=== PATIENT | male | born 1995 | race Caucasian/White ===

== ENCOUNTER 2019-11-07 11:20 | Emergency (ER) | payer BC ==
[2019-11-07 11:23] VITALS: RESP 18; TEMP 98.3
[2019-11-07] MEDS ORDERED: MORPHINE SULFATE 4 MG/ML SYRINGE IV STA (12:41)
[2019-11-07] MEDS ORDERED: KETOROLAC 30 MG/ML 1 ML VIAL IVP STA (12:41)
[2019-11-07] MEDS ORDERED: SODIUM CHLORIDE 0.9% 1,000 ML IV STA ×2 (12:41)
[2019-11-07] MEDS ORDERED: ONDANSETRON 4 MG/2 ML VIAL IVP STA (12:41)
[2019-11-07] MEDS ORDERED: PANTOPRAZOLE 40 MG/10 ML VIAL IVP STA (12:41)
--- NOTE | 2019-11-07 12:50 | ED ---
Abdominal Pain HPI - General Chief Complaint: Abdominal Pain Stated Complaint: abd & back pain Time Seen by Provider: 11/07/19 12:30 Source: patient, RN notes reviewed, old records reviewed Mode of arrival: ambulatory Limitations: no limitations - History of Present Illness Initial Comments: 33-year-old male present today with complaints of right upper quadrant pain with radiation towards the back. Symptoms starting 3 hours after eating a corn dog and drinking alcohol heavily last night. Patient denies any recent fevers or chills. He's been having some chronic right upper quadrant pain for the past month. He became more severe this morning and woke him up from sleep. - Related Data Previous Rx's Medication Instructions Recorded Famotidine [Pepcid] 20 mg PO BID #20 tablet 11/07/19 Ondansetron Odt [Zofran Odt] 4 mg PO Q8HR PRN #12 tab 11/07/19 Allergies Allergy/AdvReac Type Severity Reaction Status Date / Time Penicillins Allergy Unknown Verified 11/07/19 11:23 Review of Systems ROS Statement: Those systems with pertinent positive or pertinent negative responses have been documented in the HPI. ROS Other: All systems not noted in ROS Statement are negative. Past Medical History Past Medical History: No Reported History History of Any Multi-Drug Resistant Organisms: None Reported Past Surgical History: No Surgical Hx Reported Past Psychological History: No Psychological Hx Reported Smoking Status: Never smoker Past Alcohol Use History: Occasional Past Drug Use History: None Reported General Exam Limitations: no limitations General appearance: alert, in no apparent distress Head exam: Present: atraumatic, normocephalic, normal inspection Eye exam: Present: normal appearance, PERRL, EOMI. Absent: scleral icterus, conjunctival injection, periorbital swelling ENT exam: Present: normal exam, mucous membranes moist Neck exam: Present: normal inspection. Absent: tenderness, meningismus, lymphadenopathy Respiratory exam: Present: normal lung sounds bilaterally. Absent: respiratory distress, wheezes, rales, rhonchi, stridor Cardiovascular Exam: Present: regular rate, normal rhythm, normal heart sounds. Absent: systolic murmur, diastolic murmur, rubs, gallop, clicks GI/Abdominal exam: Present: soft, normal bowel sounds. Absent: distended, tenderness, guarding, rebound, rigid Extremities exam: Present: normal inspection, full ROM, normal capillary refill. Absent: tenderness, pedal edema, joint swelling, calf tenderness Back exam: Present: normal inspection Neurological exam: Present: alert, oriented X3, CN II-XII intact Psychiatric exam: Present: normal affect, normal mood Skin exam: Present: warm, dry, intact, normal color. Absent: rash Course Vital Signs 11/07/19 11/07/19 11/07/19 11:21 11:23 12:23 Temperature 98.3 F Pulse Rate 107 H Respiratory 18 18 18 Rate Blood Pressure 141/85 O2 Sat by Pulse 99 Oximetry 11/07/19 11/07/19 11/07/19 13:23 14:23 15:23 Temperature Pulse Rate 75 72 76 Respiratory 18 18 18 Rate Blood Pressure 136/82 O2 Sat by Pulse 100 100 100 Oximetry 11/07/19 15:44 Temperature Pulse Rate 76 Respiratory 18 Rate Blood Pressure 136/82 O2 Sat by Pulse 100 Oximetry Medical Decision Making - Medical Decision Making 23-year-old now presents emergency department today for complaints for right upper quadrant pain range towards his back starting at 6 AM today after having drinking last night. Labs. Transaminitis. Likely related to heavy alcohol intake yesterday. He had a right upper quadrant ultrasound shows no signs of cholecystitis or gallbladder stones. I advised Patient may have biliary colic advise close follow-up with surgeon and primary care doctor. Patient is reevaluated after medications feeling much better at this time. All questions were answered and return parameters were discussed. - Lab Data Result diagrams: 11/07/19 13:28 11/07/19 13:28 Lab Results 11/07/19 11/07/19 11/07/19 Range/Units 13:28 13:28 13:28 WBC 9.5 (3.8-10.6) k/uL RBC 5.44 (4.30-5.90) m/uL Hgb 17.5 (13.0-17.5) gm/dL Hct 50.5 (39.0-53.0) % MCV 92.7 (80.0-100.0) fL MCH 32.1 (25.0-35.0) pg MCHC 34.6 (31.0-37.0) g/dL RDW 12.4 (11.5-15.5) % Plt Count 232 (150-450) k/uL Neutrophils % 76 % Lymphocytes % 15 % Monocytes % 7 % Eosinophils % 1 % Basophils % 0 % Neutrophils # 7.2 (1.3-7.7) k/uL Lymphocytes # 1.4 (1.0-4.8) k/uL Monocytes # 0.6 (0-1.0) k/uL Eosinophils # 0.1 (0-0.7) k/uL Basophils # 0.0 (0-0.2) k/uL PT 9.8 (9.0-12.0) sec INR 0.9 (<1.2) APTT 23.7 (22.0-30.0) sec Sodium (137-145) mmol/L Potassium (3.5-5.1) mmol/L Chloride (98-107) mmol/L Carbon Dioxide (22-30) mmol/L Anion Gap mmol/L BUN (9-20) mg/dL Creatinine (0.66-1.25) mg/dL Est GFR (CKD-EPI)AfAm (>60 ml/min/1.73 sqM) Est GFR (CKD-EPI)NonAf (>60 ml/min/1.73 sqM) Glucose (74-99) mg/dL Calcium (8.4-10.2) mg/dL Total Bilirubin (0.2-1.3) mg/dL AST (17-59) U/L ALT (4-49) U/L Alkaline Phosphatase (38-126) U/L Total Protein (6.3-8.2) g/dL Albumin (3.5-5.0) g/dL Amylase (30-110) U/L Lipase (23-300) U/L Urine Color Yellow Urine Appearance Cloudy (Clear) Urine pH 7.5 (5.0-8.0) Ur Specific [place] 1.018 (1.001-1.035) Urine Protein Trace H (Negative) Urine Glucose (UA) Negative (Negative) Urine Ketones Negative (Negative) Urine Blood Negative (Negative) Urine Nitrite Negative (Negative) Urine Bilirubin Negative (Negative) Urine Urobilinogen <2.0 (<2.0) mg/dL Ur Leukocyte Esterase Negative (Negative) Urine RBC 1 (0-5) /hpf Urine WBC 3 (0-5) /hpf Amorphous Sediment Rare H (None) /hpf Urine Bacteria Occasional H (None) /hpf Urine Mucus Rare H (None) /hpf Urine Sperm Rare (None) /hpf 11/07/19 Range/Units 13:28 WBC (3.8-10.6) k/uL RBC (4.30-5.90) m/uL Hgb (13.0-17.5) gm/dL Hct (39.0-53.0) % MCV (80.0-100.0) fL MCH (25.0-35.0) pg MCHC (31.0-37.0) g/dL RDW (11.5-15.5) % Plt Count (150-450) k/uL Neutrophils % % Lymphocytes % % Monocytes % % Eosinophils % % Basophils % % Neutrophils # (1.3-7.7) k/uL Lymphocytes # (1.0-4.8) k/uL Monocytes # (0-1.0) k/uL Eosinophils # (0-0.7) k/uL Basophils # (0-0.2) k/uL PT (9.0-12.0) sec INR (<1.2) APTT (22.0-30.0) sec Sodium 140 (137-145) mmol/L Potassium 4.2 (3.5-5.1) mmol/L Chloride 105 (98-107) mmol/L Carbon Dioxide 25 (22-30) mmol/L Anion Gap 10 mmol/L BUN 11 (9-20) mg/dL Creatinine 1.14 (0.66-1.25) mg/dL Est GFR (CKD-EPI)AfAm >90 (>60 ml/min/1.73 sqM) Est GFR (CKD-EPI)NonAf 89 (>60 ml/min/1.73 sqM) Glucose 87 (74-99) mg/dL Calcium 9.5 (8.4-10.2) mg/dL Total Bilirubin 0.7 (0.2-1.3) mg/dL AST 270 H (17-59) U/L ALT 229 H (4-49) U/L Alkaline Phosphatase 96 (38-126) U/L Total Protein 7.6 (6.3-8.2) g/dL Albumin 5.3 H (3.5-5.0) g/dL Amylase 61 (30-110) U/L Lipase 77 (23-300) U/L Urine Color Urine Appearance (Clear) Urine pH (5.0-8.0) Ur Specific [place] (1.001-1.035) Urine Protein (Negative) Urine Glucose (UA) (Negative) Urine Ketones (Negative) Urine Blood (Negative) Urine Nitrite (Negative) Urine Bilirubin (Negative) Urine Urobilinogen (<2.0) mg/dL Ur Leukocyte Esterase (Negative) Urine RBC (0-5) /hpf Urine WBC (0-5) /hpf Amorphous Sediment (None) /hpf Urine Bacteria (None) /hpf Urine Mucus (None) /hpf Urine Sperm (None) /hpf - Radiology Data Radiology results: report reviewed Normal ultrasound of the gallbladder. No stones or signs of cholecystitis. Disposition Clinical Impression: Biliary colic, Transaminitis Disposition: HOME SELF-CARE Condition: Stable Instructions (If sedation given, give patient instructions): Biliary Colic (ED) Additional Instructions: Please use medication as discussed. Please follow up with family doctor and surgeon over the next two days. Please return to the emergency room if your symptoms increase or worsen or for any other concerns. Prescriptions: Famotidine [Pepcid] 20 mg PO BID #20 tablet Ondansetron Odt [Zofran Odt] 4 mg PO Q8HR PRN #12 tab PRN Reason: Is patient prescribed a controlled substance at d/c from ED?: No Referrals: Ciarra Hunter DO [Primary Care Provider] - 1-2 days Jazmín Salmeron MD [STAFF PHYSICIAN] - 1-2 days Time of Disposition: 14:51
[2019-11-07 13:37] LABS: Basophils % (A) 0 %; Eosinophils # (A) 0.1 k/uL (0-0.7); Eosinophils % (A) 1 %; HCT 50.5 % (39.0-53.0); HGB 17.5 gm/dL (13.0-17.5); Lymphocytes # (A) 1.4 k/uL (1.0-4.8); Lymphocytes % (A) 15 %; MCH 32.1 pg (25.0-35.0); MCHC 34.6 g/dL (31.0-37.0); MCV 92.7 fL (80.0-100.0); Mean Platelet Volume 7.5; Monocytes # (A) 0.6 k/uL (0-1.0); Monocytes % (A) 7 %; Neutrophils # (A) 7.2 k/uL (1.3-7.7); Neutrophils % (A) 76 %; Platelet Count 232 k/uL (150-450); RBC 5.44 m/uL (4.30-5.90); RDW 12.4 % (11.5-15.5); WBC 9.5 k/uL (3.8-10.6)
[2019-11-07 13:46] LABS: ALT 229 U/L (4-49); AST 270 U/L (17-59); African American GFR (CKD) >90 (>60 ml/min/1.73 sqM); Albumin 5.3 g/dL (3.5-5.0); Alkaline Phosphatase 96 U/L (38-126); Amylase 61 U/L (30-110); Anion Gap 10 mmol/L; Blood Urea Nitrogen 11 mg/dL (9-20); Calcium 9.5 mg/dL (8.4-10.2); Carbon Dioxide 25 mmol/L (22-30); Chloride 105 mmol/L (98-107); Glucose 87 mg/dL (74-99); INR 0.9 (<1.2); Non-African American GFR(CKD) 89 (>60 ml/min/1.73 sqM); Partial Thromboplastin Time 23.7 sec (22.0-30.0); Potassium 4.2 mmol/L (3.5-5.1); Prothrombin Time 9.8 sec (9.0-12.0); Sodium 140 mmol/L (137-145); Total Bilirubin 0.7 mg/dL (0.2-1.3); Total Protein 7.6 g/dL (6.3-8.2)
[2019-11-07 13:48] LABS: Amorphous Sediment,Urine Rare /hpf; Appearance,Urine Cloudy (Clear); Bacteria,Urine Occasional /hpf; Bilirubin,Urine Negative (Negative); Blood,Urine Negative (Negative); Color,Urine Yellow; Glucose,Urine (UA) Negative (Negative); Ketones,Urine Negative (Negative); Leukocyte Esterase,Urine Negative (Negative); Mucus,Urine Rare /hpf; Nitrite,Urine Negative (Negative); PH, Urine 7.5 (5.0-8.0); Protein,Urine Trace (Negative); RBC,Urine 1 /hpf (0-5); Specific Gravity,Urine 1.018 (1.001-1.035); Sperm,Urine Rare /hpf; Urobilinogen,Urine <2.0 mg/dL (<2.0); WBC,Urine 3 /hpf (0-5)
--- NOTE | 2019-11-07 14:38 | US ---
EXAMINATION TYPE: US gallbladder DATE OF EXAM: 11/07/2019 COMPARISON: NONE CLINICAL HISTORY: pain. RUQ pain EXAM MEASUREMENTS: Liver Length: 13.3 cm Gallbladder Wall: 0.2 cm CBD: 0.2 cm Right Kidney: 10.8 x 4.0 x 4.5 cm Pancreas: visualized portions wnl, tail obscured by bowel gas Liver: wnl Gallbladder: No stones seen Evidence for sonographic Nicholas's sign: No CBD: wnl Right Kidney: No hydronephrosis or masses seen There is no free fluid. IMPRESSION: Normal exam. No gallstones or dilated ducts.
[2019-11-07 15:43] VITALS: BP 136/82; PULSE 76
== END 2019-11-07 15:46 | disposition home or self-care (01) ==
LOC: EC 11:20
DX: Z88.0 Allergy status to penicillin (principal); K80.50 Calculus of bile duct without cholangitis or cholecystitis without obstruction; R74.0 Nonspecific elevation of levels of transaminase and lactic acid dehydrogenase [LDH]
CPT/HCPCS: 36415; 80053; 82150; 83690; 85025; 85610; 85730; 81001; 76705; 99285; 96374; 96375 ×3; 96361 ×2; J2270; J2405; J1885; C9113